=== PATIENT | female | born 2000 | race Caucasian/White ===

== ENCOUNTER 2019-03-11 14:22 | Emergency (ER) | payer OTHER ==
[~2019-03-11] VITALS: Ht 170.2 cm; Wt 81.1 kg
[2019-03-11 14:33] VITALS: BP 124/83
== END 2019-03-11 15:40 | disposition home or self-care (01) ==
LOC: ED 15:34
DX: S50.01XA Contusion of right elbow, initial encounter (principal); Y04.8XXA Assault by other bodily force, initial encounter; Y93.89 Activity, other specified; Y92.89 Other specified places as the place of occurrence of the external cause; Y99.8 Other external cause status
CPT/HCPCS: 99283